=== PATIENT | female | born 1990 | race Caucasian/White ===

== ENCOUNTER 2016-04-20 22:55 | Emergency (ER) | payer SELFPAY ==
[~2016-04-20] VITALS: Ht 162.6 cm; Wt 54.5 kg
[~2016-04-20 22:55] MED LIST: PNV1TABL54 PO
[2016-04-20 23:20] LABS: APPEARANCE,URINE TURBID (CLEAR); GLUCOSE, URINE (UA) NEGATIVE (NEGATIVE); KETONES,URINE NEGATIVE (NEGATIVE); LEUKOCYTE ESTERASE ,URINE MODERATE (NEGATIVE); OCCULT BLOOD,URINE TRACE (NEGATIVE); PH,URINE 7.5 (5.0-8.0); PROTEIN,URINE NEGATIVE (NEGATIVE)
[2016-04-20 23:24] LABS: ADD UA MICROSCOPIC YES
[2016-04-20 23:33] LABS: AMORPHOUS SEDIMENT,UR Moderate /LPF (None Seen)
[2016-04-20 23:34] LABS: SQUAMOUS EPITHELIAL CELL,UR Moderate /LPF (None Seen)
[2016-04-20 23:36] LABS: RBC,URINE 0-2 /HPF (0-2)
[2016-04-21] MEDS ORDERED: AZITHROMYCIN 250 MG TABLET PO ONE (00:45)
[2016-04-21] MEDS ORDERED: PHENAZOPYRIDINE HCL 100 MG TABLET PO ONE (00:45)
[2016-04-21] MEDS ORDERED: LIDOCAINE HCL/PF 1% 2 ML VIAL IM ONE (00:45)
[2016-04-21] MEDS ORDERED: CefTRIAXone SODIUM 1 GM/VIAL IM ONE (00:45)
[2016-04-21 00:55] VITALS: BP 114/74
[2016-04-22 19:34] LABS: GC DNA N.A. AMPLIFY Positive (Negative)
== END 2016-04-21 01:19 | disposition home or self-care (01) ==
LOC: EMS 22:56
DX: N39.0 Urinary tract infection, site not specified (principal)
CPT/HCPCS: 81001; 84703; 87086; 87491; 87591; 96372; 99284; J0696; J3490

== ENCOUNTER 2017-01-28 15:46 | Emergency (ER) | payer OTHER ==
[~2017-01-28] VITALS: Ht 162.6 cm; Wt 59.1 kg
[2017-01-28] MEDS ORDERED: SODIUM CHLORIDE 0.9% 1,000 ML IV ONE ×2 (16:15→20:30)
[2017-01-28 16:27] LABS: BASOPHILS % (AUTO) 0.3 % (0.0-2.0); EOSINOPHILS % (AUTO) 3.5 % (1.0-6.0); HEMATOCRIT 38.5 % (36-46); HEMOGLOBIN 12.9 g/dL (12.0-16.0); LYMPHOCYTES # (AUTO) 1.7 K/uL (1.0-4.8); LYMPHOCYTES % (AUTO) 15.6 % (22.0-44.0); MEAN CORPUSCULAR HGB CONC 33.5 G/dL (31.0-37.0); MEAN CORPUSCULAR VOLUME 86 fL (80-100); MONOCYTES # (AUTO) 0.5 K/uL (0.1-1.0); MONOCYTES % (AUTO) 4.5 % (2.0-9.0); NEUTROPHILS # (AUTO) 8.2 K/uL (1.8-7.7); NEUTROPHILS % (AUTO) 76.1 % (40.0-70.0); PLATELET COUNT (AUTO) 269 K/uL (150-450); RED BLOOD CELL COUNT(AUTO) 4.45 MIL/uL (4.00-5.20); RED CELL DISTRIBUTION WIDTH 14.8 % (11.5-14.5); WHITE BLOOD COUNT (AUTO) 10.8 K/uL (4.5-11.0)
[2017-01-28 17:40] LABS: ANION GAP 9 mmol/L (8-16); CALCIUM, TOTAL 9.3 mg/dL (8.8-10.5); CARBON DIOXIDE 28 mmol/L (22-29); CHLORIDE 106 mmol/L (98-107); CREATININE 0.66 mg/dL (0.60-1.30); GLOMERULAR FILTR. RATE CALC > 60 mL/min (>60); POTASSIUM 3.9 mmol/L (3.5-5.1); SODIUM SERUM 143 mmol/L (136-145); UREA NITROGEN, BLOOD 6 mg/dL (7-18)
[2017-01-28 17:42] LABS: ORIG DRAW (USER) PTCARESTAF
[2017-01-28 17:46] LABS: ALANINE AMINOTRANSFERASE 25 U/L (12-78); ALBUMIN 4.2 g/dL (3.4-5.0); ASPARTATE AMINOTRANSFERASE 16 U/L (15-37); BILIRUBIN,TOTAL 0.3 mg/dL (0.1-1.0)
[2017-01-28 17:53] LABS: ACETAMINOPHEN < 10 mcg/mL (10-30)
[2017-01-28 17:58] LABS: SALICYLATE 1.2 mg/dL (2.8-20.0)
[2017-01-28 19:06] LABS: APPEARANCE,URINE CLEAR (CLEAR); GLUCOSE, URINE (UA) NEGATIVE (NEGATIVE); KETONES,URINE NEGATIVE (NEGATIVE); LEUKOCYTE ESTERASE ,URINE NEGATIVE (NEGATIVE); OCCULT BLOOD,URINE TRACE (NEGATIVE); PH,URINE 5.5 (5.0-8.0); PROTEIN,URINE NEGATIVE (NEGATIVE)
[2017-01-28 19:19] LABS: ADD UA MICROSCOPIC YES; RBC,URINE 0-2 /HPF (0-2); WBC,URINE None Seen /HPF (0-5)
[2017-01-28 21:35] VITALS: BP 107/67
== END 2017-01-28 21:43 | disposition home or self-care (01) ==
LOC: EMS 15:48
DX: F11.10 Opioid abuse, uncomplicated (principal); F10.10 Alcohol abuse, uncomplicated
CPT/HCPCS: 36415; 51702; 80053; 80307; 81001; 84703; 85025; 96360; 96361; 99285; G0480 ×2; G0481; J7030

== ENCOUNTER 2017-09-12 17:31 | Emergency (ER) | payer SELFPAY ==
[~2017-09-12] VITALS: Ht 152.4 cm; Wt 62.7 kg
[2017-09-12] MEDS ORDERED: CEPHALEXIN MONOHYDRATE 500 MG CAPSULE PO ONE (19:00)
[2017-09-12] MEDS ORDERED: SULFAMETHOX/TRIMETH DS 800-160 MG/TABLET PO ONE (19:00)
[2017-09-12] MEDS ORDERED: IBUPROFEN 800 MG TABLET PO ONE (19:00)
[2017-09-12 19:59] VITALS: BP 128/69
== END 2017-09-12 20:03 | disposition home or self-care (01) ==
LOC: EMS 17:31
DX: L03.115 Cellulitis of right lower limb (principal); F11.10 Opioid abuse, uncomplicated; L02.415 Cutaneous abscess of right lower limb
CPT/HCPCS: 99284

== ENCOUNTER 2017-12-05 16:34 | Emergency (ER) | payer SELFPAY ==
[~2017-12-05] VITALS: Ht 162.6 cm; Wt 59.1 kg
[2017-12-05] MEDS ORDERED: KETOROLAC TROMETHAMINE 30 MG/ML VIAL IM ONE (19:15)
[2017-12-05] MEDS ORDERED: SULFAMETHOX/TRIMETH DS 800-160 MG/TABLET PO ONE (19:15)
[2017-12-05] MEDS ORDERED: CEPHALEXIN MONOHYDRATE 500 MG CAPSULE PO ONE (19:15)
[2017-12-05] MEDS ORDERED: PERTUSS(ACELL),DIPH,TET VAC/PF 0.5 ML VIAL IM ONE (19:30)
[2017-12-05 21:24] VITALS: BP 111/61
== END 2017-12-05 21:29 | disposition home or self-care (01) ==
LOC: EMS 16:35
DX: S91.332D Puncture wound without foreign body, left foot, subsequent encounter (principal); F15.90 Other stimulant use, unspecified, uncomplicated; X58.XXXD Exposure to other specified factors, subsequent encounter
CPT/HCPCS: 73630; 90471; 90715; 96372; 99284; J1885